=== PATIENT | female | born 1940 | race Caucasian/White ===

== ENCOUNTER 2020-09-09 21:32 | Emergency (ER) | payer MEDICARE | END 2020-09-09 21:55 | disposition home or self-care (01) | LOC: NAV ERS 21:32 | DX: T16.1XXA Foreign body in right ear, initial encounter (principal); I10 Essential (primary) hypertension; K21.9 Gastro-esophageal reflux disease without esophagitis; Z79.899 Other long term (current) drug therapy | CPT/HCPCS: 99282 ==